=== PATIENT | male | born 1950 | race Caucasian/White ===

== ENCOUNTER → 2020-06-29 15:56 | Outpatient (CLI) | payer MEDICARE, BC, SELFPAY ==
--- NOTE | 2020-06-29 16:06 | DI.RAD.S_ITS ---
PROCEDURE: XR CHEST 2V INDICATIONS: HX OF TB TECHNIQUE: 2 views of the chest were acquired. COMPARISON: [facility], , CHEST 2 VIEW, 12/06/2010, 10:16. FINDINGS: Surgical changes and devices: None. Lungs and pleura: Lungs are clear. No pleural effusions or pneumothorax. Mediastinum: Mediastinal contours are normal. Heart size is normal. Bones and chest wall: No suspicious bony abnormalities. Soft tissues appear unremarkable. IMPRESSION: No acute disease. Dictated by: Zac Kenyon M.D. on 06/29/2020 at 16:56 Approved by: Zac Kenyon M.D. on 06/29/2020 at 16:57
== END ==
PROVIDERS: PCP Student in an Organized Health Care Education/Training Program; Referring Provider Student in an Organized Health Care Education/Training Program; Visit Provider Student in an Organized Health Care Education/Training Program
DX: Z22.7 Latent tuberculosis (principal)
CPT/HCPCS: 71046

== ENCOUNTER → 2020-07-12 09:53 | Outpatient (CLI) | payer MEDICARE, BC, SELFPAY ==
[2020-07-12 11:24] LABS: COVID19 -Nasal RAPID Negative (Negative)
== END ==
PROVIDERS: PCP Student in an Organized Health Care Education/Training Program; Visit Provider Surgery
DX: Z20.822 Contact with and (suspected) exposure to COVID-19 (principal)
CPT/HCPCS: 87635; C9803

== ENCOUNTER → 2020-07-13 08:10 | Day surgery (SDC) | payer MEDICARE, BC, SELFPAY ==
[2020-07-13] VITALS (8 sets, daily range): BP systolic 131–181; BP diastolic 31–100; PULSE 80–102; RESP 12–18; TEMP 36.4–37.3; O2SAT 93–98; BMI 31.9
[2020-07-13] MEDS: LACTATED RINGERS 1,000 ML 100 ML IV ×2 (08:38→11:06)
--- NOTE | 2020-07-13 09:27 | PM.PREOP ---
Pre-operative Note Interval Note History & Physical reviewed/Exam performed by Physician: Yes Changes to H&P: No
[2020-07-13] MEDS: CEFAZOLIN 2 GM/100 ML FROZ.PIGGY IV (09:40)
--- NOTE | 2020-07-13 10:04 | SUR.OPER ---
Supine on padded OR bed, head on pillow, arms secured on padded arm boards at <90 degrees abduction, legs uncrossed, safety belt at thigh, tape over blanket over lower legs.Gel pad under heels.
[2020-07-13] MEDS: BUPIVACAINE 0.5% W/ EPI (PF) 30 ML VIAL INJ (10:08)
--- NOTE | 2020-07-13 11:18 | PM.OP.1 ---
Operative Date/Time/Diagnoses Date of procedure: 07/13/20 Time of procedure: 11:18 Pre-op diagnosis: Reducible left inguinal hernia Post-op diagnosis: same Procedure & Clinicians Procedure: Open left inguinal hernia repair with mesh Same procedure as scheduled: Yes Indications: 69-year-old male with a symptomatic reducible left inguinal hernia Surgeon: Jj Orlando Anesthesia Type: General Operative Notes Findings: Large indirect left inguinal hernia. Small direct floor defect Specimen(s): none sent Estimated Blood Loss (mL): 50 Procedure in detail: The patient was placed supine on the table and bilateral lower extremity compression devices were applied. Anesthesia was induced they were intubated with an LMA and received 2g of Ancef. A time-out was performed. They were prepped and draped in sterile fashion. The left external inguinal ring and the anterior superior iliac crest were identified and marked. 1 finger breath above the inguinal ligament the skin was infiltrated with 0.25% bupivacaine. The skin incision was made here and the subcutaneous tissues were divided with electrocautery exposing the external oblique aponeurosis which was then opened along the direction of its fibers. Using blunt dissection the internal oblique aporneurosis was from the external oblique upper leaflet to identify the iliohypogastric nerve. Using a kittner the cord was carefully dissected away from the inguinal canal adjacent to the pubic tubercle. The cord including the vas deferens, testicular bloody supply, ilioguinal and genital nerve were encircled with a [place] drain. A small direct floor defect was identified and it was reduced into the abdomen and the internal oblique aporneuorsis was approximated to the inguinal ligament with Ethibond suture to reapproximate the floor. The cremasteric fibers surrounding the cord were divided using electrocautery adjacent to the internal ring.. The vas deferens and the testicular vessels were preserved and protected. There was a Large indirect hernia on the anterior medial aspect of the cord which was skeletonized away from the vas deferens and testicular blood supply. The indirect hernia was skeletonized back to the internal ring and reduced spontaneously into the abdomen. Placed a plug of mesh into the internal ring and this was secured with Vicryl suture. I selected a 7x 15 cm lightweight Pro Loop hernia mesh. The inferior medial aspect of the mesh was anchored to insertion of the rectus muscle to the pubic tubercle such that there was approximately 2 cm of tubercle overlap with Ethibond and then was run continuously along the inferior edge of the mesh to the shelving edge of the inguinal ligament. Interrupted 3 0 Vicryl suture was used to anchor the superior aspect of the mesh to the conjoined tendon in several places. The tails were then reapproximated loosely around the spermatic cord. The tails of the mesh were then tucked under the external oblique aponeurosis. The repair was checked for hemostasis. The wound was irrigated with sterile saline. The external oblique aponeurosis was reapproximated in a running fashion using 3 0 Vicryl. The subcutaneous tissues were reapproximated with 3 0 Vicryl skin closed with 4 0 Monocryl followed by the application of Dermabond. At the end of the operation I ensured that both testicles were within the scrotum. The sponge instrument count at the end operation was correct. The patient emerged from anesthesia was extubated and transferred to the postoperative care unit in stable condition. A total of 30 ml of of 0.25% bupivicaine was used to infiltrate the skin. Complications: none Post-operative Condition: stable Disposition: same day surgery
[2020-07-13] MEDS: OXYCODONE/ACETAMINOPHEN 5/325 TABLET 1 TAB PO (11:30)
== END | disposition home or self-care (01) ==
PROVIDERS: PCP Student in an Organized Health Care Education/Training Program; Referring Provider Surgery; Visit Provider Surgery
PROC: (CPT 49505; principal; 2020-07-13 09:15)
DX: K40.90 Unilateral inguinal hernia, without obstruction or gangrene, not specified as recurrent (principal); K21.9 Gastro-esophageal reflux disease without esophagitis; F32.9 Major depressive disorder, single episode, unspecified
CPT/HCPCS: 49505; C1781; J0690; J1100; J1885; J2405; J2704; J3010

== ENCOUNTER → 2024-06-04 10:19 | Outpatient (CLI) | payer MEDICARE, BC, SELFPAY ==
--- NOTE | 2024-06-04 10:22 | DI.RAD.S_ITS ---
PROCEDURE: XR CHEST 2V INDICATIONS: Personal history of tuberculosis TECHNIQUE: 2 views of the chest were acquired. COMPARISON: , CR, XR CHEST 2V, 06/29/2020, 16:12. FINDINGS: Surgical changes and devices: None. Lungs and pleura: Scattered tiny calcified granulomas are unchanged in 2020. No new pulmonary abnormality Mediastinum: Heart size, mediastinum pulmonary vessels are normal. Bones and chest wall: No suspicious bony abnormalities. Soft tissues appear unremarkable. IMPRESSION: No acute cardiopulmonary disease. No evidence of active tuberculosis Dictated by: Wilder Cast M.D. on 06/05/2024 at 17:49 Approved by: Wilder Cast M.D. on 06/05/2024 at 17:50
== END ==
PROVIDERS: PCP Family Medicine; Referring Provider Family Medicine; Visit Provider Family Medicine
DX: Z86.11 Personal history of tuberculosis (principal); Z09 Encounter for follow-up examination after completed treatment for conditions other than malignant neoplasm
CPT/HCPCS: 71046

== ENCOUNTER → 2024-09-09 14:07 | Outpatient (CLI) | payer MEDICARE, BC, SELFPAY ==
--- NOTE | 2024-09-09 14:09 | DI.RAD.S_ITS ---
PROCEDURE: ORTHO-XR FOOT 2V WB LEFT INDICATIONS: LT FOOT PAIN TECHNIQUE: 3 weight-bearing views acquired of the foot. COMPARISON: None. FINDINGS: Bones: There are no osseous abnormalities Joints: Mild degeneration of the 1st MTP and all interphalangeal joints appreciated Soft tissues: Minor calcification Achilles tendon insertion on the calcaneus IMPRESSION: Chronic findings as described Dictated by: Wilder Cast M.D. on 09/10/2024 at 16:55 Approved by: Wilder Cast M.D. on 09/10/2024 at 16:56
== END ==
PROVIDERS: PCP Family Medicine; Referring Provider Family Medicine; Visit Provider Family Medicine
DX: M19.072 Primary osteoarthritis, left ankle and foot (principal); M79.672 Pain in left foot
CPT/HCPCS: 73620

== ENCOUNTER → 2025-03-17 08:50 | Outpatient (ROUT) | payer MEDICARE, BC, SELFPAY ==
[2025-03-17 09:07] LABS: Cholesterol 247 mg/dL (140-199); HDL Cholesterol 64 mg/dL (40-60); Hemoglobin A1C% w Est Avg Glu 6.0 % (4.0-6.0); Triglycerides 119 mg/dL (35-150)
== END ==
PROVIDERS: PCP Family Medicine; Visit Provider Family Medicine
DX: R73.03 Prediabetes (principal); E78.2 Mixed hyperlipidemia
CPT/HCPCS: 80061; 83036